=== PATIENT | female | born 1980 | race Caucasian/White ===

== ENCOUNTER → 2020-05-21 | Day surgery (SDC) | payer BC ==
--- NOTE | 2020-05-21 08:28 | MMO ---
Stereotactic guided biopsy right breast microcalcifications. Surgical specimen mammography Diagnostic mammogram right breast post biopsy HISTORY: Abnormal mammogram. Microcalcifications. FINDINGS: After explaining the procedure and answering all questions, the microcalcification cluster at the superior lateral aspect of the right breast was visualized. Sterile technique, buffered local anesthesia, stereotactic guidance, and a superior approach were use d to carefully advance a 10-gauge vacuum-assisted biopsy needle into the microcalcification cluster. Position confirmed with stereotactic imaging. A total of 6 specimens were obtained and eventually submitted to pathology for evaluation. Mammographic evaluation of the surgical specimen shows microcalcifications within the tissue. Localiz ation clip was placed in the biopsy bed under stereotactic guidance. Needle was removed and hemostasis obtained using direct pressure. Patient tolerated the procedure well and was eventually dismissed in good condition. Post procedure mammographic imaging shows dense fibroglandular tissue. Gas within the biopsy bed at t he superior lateral aspect of the right breast. Some residual microcalcifications. Localization clip lies immediately superior to the center of the biopsy site. IMPRESSION : Technically successful stereotactic guided biopsy right breast microcalcifications. Pathology pending .
== END ==
LOC: MAMMO 06:43
PROVIDERS: ATTEND Obstetrics & Gynecology
PROC: 0H9T0ZX Drainage of Right Breast, Open Approach, Diagnostic (ICD-10-PCS; principal; 2020-05-21)
DX: N60.11 Diffuse cystic mastopathy of right breast (principal)
CPT/HCPCS: 19081; 76098; 88305